=== PATIENT | female | born 1960 | race African-American/Black ===

== ENCOUNTER 2021-11-24 12:06 | Emergency (ER) | payer OTHER ==
[~2021-11-24] VITALS: Ht 167.6 cm; Wt 75.0 kg
[~2021-11-24 12:06] MED LIST: albuterol; metformin
[2021-11-24 13:02] LABS: BASOPHILS % 1.1 % (0.0-2.0); EOSINOPHILS % 0.4 % (0.0-5.0); HEMOGLOBIN. 13.8 g/dL (12.0-16.0); LYMPHOCYTES % 30.7 % (20.0-50.0); MEAN CORPUSCULAR HEMOGLOBIN 26.6 pg (28.0-32.0); MEAN PLATELET VOLUME 8.6 fl (7.4-10.4); MONOCYTES % 7.7 % (2.0-8.0); NEUTROPHILS % 60.1 % (40.0-76.0); PLATELET 200 x1000/uL (130-400); RED BLOOD CELL COUNT 5.18 mill/uL (4.2-5.4); RED CELL DISTRIBUTION WIDTH 14.5 % (11.6-14.6)
[2021-11-24 13:12] LABS: CHLORIDE 101 mEq/L (98-107)
[2021-11-24 13:19] LABS: BETA HYDROXYBUTYRATE 0.2 mMol/L (0.0-0.3)
[2021-11-24] MEDS ORDERED: CLIN300C12 MT (16:36)
[2021-11-24 17:37] VITALS: BP 127/77
== END 2021-11-24 17:38 | disposition home or self-care (01) ==
LOC: ER 12:06
DX: L03.116 Cellulitis of left lower limb (principal); E11.9 Type 2 diabetes mellitus without complications; I10 Essential (primary) hypertension; Z88.0 Allergy status to penicillin
CPT/HCPCS: 36415; 73560; 73630; 80053; 82010; 83880; 84484; 85025; 85651; 86140; 93005; 99285

== ENCOUNTER 2023-11-19 21:14 | Emergency (ER) | payer OTHER ==
[~2023-11-19] VITALS: Ht 175.3 cm; Wt 102.0 kg
[~2023-11-19 21:14] MED LIST changes: +LANTUSUD SUBCUT; +LEVO-65 MT; +SULF1TAB48 MT
[2023-11-19 22:04] VITALS: BP 141/93; PULSE 102; RESP 18; TEMP 98.5; O2SAT 99
[2023-11-19 22:50] LABS: BASOPHILS % 1.2 % (0.0-2.0); EOSINOPHILS % 0.9 % (0.0-5.0); HEMATOCRIT. 39.9 % (36.0-48.0); HEMOGLOBIN. 12.5 g/dL (12.0-16.0); LYMPHOCYTES % 38.3 % (20.0-50.0); MEAN CORPUSCULAR HEMOGLOBIN 25.9 pg (28.0-32.0); MEAN CORPUSCULAR HGB CONC 31.4 g/dL (31.0-37.0); MEAN CORPUSCULAR VOLUME 82.5 fL (81.0-99.0); MEAN PLATELET VOLUME 8.5 fl (7.4-10.4); MONOCYTES % 11.7 % (2.0-8.0); NEUTROPHILS % 47.9 % (40.0-76.0); PLATELET 259 x1000/uL (130-400); RED BLOOD CELL COUNT 4.84 mill/uL (4.2-5.4); WHITE BLOOD COUNT 8.9 x1000/uL (4.5-11.0)
[2023-11-19] MEDS ORDERED: IBUPROFEN 400MG TABLET PO ONE (23:00)
[2023-11-19] MEDS ORDERED: ACETAMINOPHEN 325MG TABLET PO ONE (23:00)
[2023-11-19 23:04] LABS: ALANINE AMINOTRANSFERASE 9 IU/L (10-49); ALBUMIN 4.1 g/dL (3.2-4.8); ASPARTATE AMINOTRANSFERASE 12 IU/L (<34); BILIRUBIN TOTAL 0.3 mg/dL (0.1-1.0); CALCIUM 9.9 mg/dL (8.7-10.4); CARBON DIOXIDE 32 mEq/L (21-32); CHLORIDE 103 mEq/L (98-107); CREATININE 1.2 mg/dL (0.6-1.0); GLUCOSE 240 mg/dL (70-105); POTASSIUM 4.6 mEq/L (3.5-5.1); PROTEIN TOTAL 7.6 g/dL (6.0-8.3); SODIUM 138 mEq/L (136-145); TROPONIN I HIGH SENSITIVITY 5 ng/L (3.0-34); UREA NITROGEN BLOOD 20 mg/dL (9-23)
[2023-11-20 00:11] LABS: CLARITY URINE TURBID (CLEAR); COLOR URINE YELLOW (YELLOW); GLUCOSE URINE TRACE (NEGATIVE); KETONES URINE TRACE (NEGATIVE); LEUKOCYTE ESTERASE URINE 3+ (NEGATIVE); NITRITE URINE POSITIVE (NEGATIVE); OCCULT BLOOD URINE 2+ (NEGATIVE); PH URINE 5.5 (4.5-8.0); PROTEIN URINE 3+ (NEGATIVE); SPECIFIC GRAVITY URINE 1.019 (1.005-1.030)
[2023-11-20] MEDS ORDERED: CIPR-263 MT ×2 (01:50→01:52)
[2023-11-20] MEDS ORDERED: ACET-2708 MT ×2 (01:50→01:52)
[2023-11-20] MEDS ORDERED: LIDO700A30 TP ×5 (01:50→01:56)
[2023-11-20 04:55] LABS: WBC URINE TNTC /hpf (0-2)
[2023-11-20 05:02] LABS: RBC URINE 15-25 /hpf (0-2)
[2023-11-20 05:04] LABS: SQUAMOUS EPITHELIAL CELL URINE NONE SEEN /lpf (RARE/1+)
[2023-11-20 05:05] LABS: BACTERIA URINE 3+
[2023-11-21] MEDS ORDERED: CIPR-263 MT (11:35)
== END 2023-11-20 02:10 | disposition home or self-care (01) ==
LOC: ER 21:14
DX: R10.9 Unspecified abdominal pain (principal); J45.909 Unspecified asthma, uncomplicated; F32.9 Major depressive disorder, single episode, unspecified; E11.9 Type 2 diabetes mellitus without complications
CPT/HCPCS: 36415; 71045; 74176; 80053; 81003; 82962; 83605; 83880; 84484; 85025; 87077; 87186; 93005; 99291

== ENCOUNTER 2023-11-21 10:57 | Emergency (ER) | payer OTHER ==
[~2023-11-21] VITALS: Ht 167.6 cm; Wt 90.0 kg
[~2023-11-21 10:57] MED LIST changes: +ACET-2708 MT; +CIPR-263 MT; -LANTUSUD SUBCUT; +LIDO700A30 TP
[2023-11-21 11:04] VITALS: BP 153/97; PULSE 106; RESP 20; TEMP 98.4; O2SAT 98
[2023-11-21] MEDS ORDERED: CIPR-263 MT (11:35)
== END 2023-11-21 11:45 | disposition home or self-care (01) ==
LOC: ER 10:57
DX: N12 Tubulo-interstitial nephritis, not specified as acute or chronic (principal); M48.00 Spinal stenosis, site unspecified; Z88.0 Allergy status to penicillin
CPT/HCPCS: 99283

== ENCOUNTER 2023-12-03 13:44 | Emergency (ER) | payer OTHER ==
[~2023-12-03] VITALS: Ht 172.7 cm; Wt 95.0 kg
[2023-12-03 13:54] VITALS: BP 156/76; RESP 16; TEMP 98.8; O2SAT 99
[2023-12-03 13:58] VITALS: PULSE 97
[2023-12-03 14:52] LABS: EOSINOPHILS % 0.9 % (0.0-5.0); HEMATOCRIT. 38.9 % (36.0-48.0); LYMPHOCYTES % 41.5 % (20.0-50.0); MEAN CORPUSCULAR HEMOGLOBIN 27.2 pg (28.0-32.0); MEAN CORPUSCULAR HGB CONC 33.5 g/dL (31.0-37.0); MEAN CORPUSCULAR VOLUME 81.3 fL (81.0-99.0); MONOCYTES % 8.1 % (2.0-8.0); NEUTROPHILS % 48.5 % (40.0-76.0); PLATELET 203 x1000/uL (130-400); RED BLOOD CELL COUNT 4.78 mill/uL (4.2-5.4); RED CELL DISTRIBUTION WIDTH 14.6 % (11.6-14.6); WHITE BLOOD COUNT 6.8 x1000/uL (4.5-11.0)
[2023-12-03 14:54] LABS: CLARITY URINE CLEAR (CLEAR); COLOR URINE YELLOW (YELLOW); GLUCOSE URINE 3+ (NEGATIVE); KETONES URINE NEGATIVE (NEGATIVE); LEUKOCYTE ESTERASE URINE NEGATIVE (NEGATIVE); NITRITE URINE NEGATIVE (NEGATIVE); OCCULT BLOOD URINE TRACE (NEGATIVE); PH URINE 5.5 (4.5-8.0); PROTEIN URINE 2+ (NEGATIVE); SPECIFIC GRAVITY URINE 1.026 (1.005-1.030); UROBILINOGEN URINE 0.2 E.U./dL (0.2-1.0)
[2023-12-03 15:06] LABS: ALANINE AMINOTRANSFERASE 9 IU/L (10-49); ASPARTATE AMINOTRANSFERASE 13 IU/L (<34); BILIRUBIN TOTAL 0.2 mg/dL (0.1-1.0); CALCIUM 9.3 mg/dL (8.7-10.4); CARBON DIOXIDE 26 mEq/L (21-32); CHLORIDE 103 mEq/L (98-107); CREATININE 1.3 mg/dL (0.6-1.0); POTASSIUM 4.3 mEq/L (3.5-5.1); PROTEIN TOTAL 7.5 g/dL (6.0-8.3); SODIUM 133 mEq/L (136-145); UREA NITROGEN BLOOD 25 mg/dL (9-23)
[2023-12-03 15:27] LABS: GLUCOSE 456 mg/dL (70-105)
[2023-12-03 16:22] LABS: SQUAMOUS EPITHELIAL CELL URINE 2+ /lpf (RARE/1+)
[2023-12-03 16:23] LABS: BACTERIA URINE 2+; RBC URINE 0-2 /hpf (0-2); WBC URINE 0-2 /hpf (0-2)
== END 2023-12-03 19:59 | disposition home or self-care (01) ==
LOC: ER 14:23
DX: R04.0 Epistaxis (principal); J45.909 Unspecified asthma, uncomplicated; F32.A Depression, unspecified; E11.9 Type 2 diabetes mellitus without complications; Z98.890 Other specified postprocedural states; Z88.0 Allergy status to penicillin
CPT/HCPCS: 36415; 71045; 80053; 81003; 82962; 85025; 99284

== ENCOUNTER 2023-12-06 10:14 | Emergency (ER) | payer OTHER ==
[~2023-12-06] VITALS: Ht 167.6 cm; Wt 100.0 kg
[2023-12-06 10:26] VITALS: BP 155/83; PULSE 101; RESP 16; TEMP 98.7; O2SAT 99
== END 2023-12-06 11:30 | disposition home or self-care (01) ==
LOC: ER 10:14
DX: R04.0 Epistaxis (principal); J45.909 Unspecified asthma, uncomplicated; F32.9 Major depressive disorder, single episode, unspecified; E11.9 Type 2 diabetes mellitus without complications; Z79.899 Other long term (current) drug therapy
CPT/HCPCS: 99281